=== PATIENT | female | born 1940 | race Caucasian/White ===

== ENCOUNTER 2016-09-21 10:30 | Inpatient (IN) | payer MEDICARE ==
[~2016-09-21] VITALS: Ht 157.5 cm; Wt 47.6 kg
[2016-09-21 10:50] LABS: BILIRUBIN,URINE Negative (NEGATIVE); BLOOD, URINE Trace-lysed Ery/uL (NEGATIVE); COLOR,URINE Light yellow (YELLOW); KETONES,URINE Negative (NEGATIVE); LEUKOCYTE ESTERASE ,URINE Large (NEGATIVE); NITRITE, URINE Negative (NEGATIVE); PH,URINE 5.5 (5.0-8.0); PROTEIN,URINE Negative (NEGATIVE); UGLUCOSE Negative (NEGATIVE); UROBILINOGEN,URINE 0.2 EU/dL (0.2)
[2016-09-21 10:51] LABS: APPEARANCE,URINE Hazy (CLEAR)
[2016-09-21 10:57] LABS: BACTERIA,URINE Few /HPF (None Seen); RBC,URINE 0-3 /HPF (0-2); SQUAMOUS EPITHELIAL CELL,UR Few /HPF (None Seen); WBC,URINE 50-80 /HPF (0-3)
[2016-09-21] MEDS ORDERED: CEPHALEXIN MONOHYDRATE 500 MG CAPSULE PO ONE ×2 (11:30→13:49)
[2016-09-21 11:45] VITALS: BP 135/89
[2016-09-21] MEDS ORDERED: TEMAZEPAM 7.5 MG CAPSULE PO PRN (12:00)
[2016-09-21] MEDS ORDERED: LORAZEPAM 0.5 MG TABLET PO PRN (12:00)
[2016-09-21] MEDS ORDERED: ACETAMINOPHEN 325 MG TABLET PO PRN (12:00)
[2016-09-21] MEDS ORDERED: MAGNESIUM HYDROXIDE 30 ML UDC PO PRN (12:00)
[2016-09-21] MEDS ORDERED: MAG HYDROX/AL HYDROX/SIMETH 30 ML UDC PO PRN (12:00)
[2016-09-21 16:00] VITALS: BP 135/89
[2016-09-21 20:00] VITALS: BP 116/67
[2016-09-21] MEDS: DIVALPROEX SODIUM 125 MG CAP.SPRINK PO SCH (21:00)
[2016-09-21 21:10] VITALS: BP 116/67
[2016-09-22 08:03] VITALS: BP 158/78
[2016-09-22] MEDS: DIVALPROEX SODIUM 125 MG CAP.SPRINK PO SCH ×2 (09:08→20:39)
[2016-09-22 14:52] LABS: BASOPHILS % (AUTO) 0.2 % (0.0-2.0); EOSINOPHILS % (AUTO) 0.4 % (0.0-6.0); HEMATOCRIT 40 % (33-45); HEMOGLOBIN 13.2 g/dL (11.5-14.8); LYMPHOCYTES # (AUTO) 1.3 /CMM (0.8-4.8); LYMPHOCYTES % (AUTO) 11.9 % (20.0-44.0); MEAN CORPUSCULAR HEMOGLOBIN 31 PG (26.0-33.0); MEAN CORPUSCULAR HGB CONC 33 g/dl (31.0-36.0); MEAN CORPUSCULAR VOLUME 94 fL (82-100); MONOCYTES # (AUTO) 0.6 /CMM (0.1-1.30); NEUTROPHILS % (AUTO) 82.5 % (43.0-81.0); PLATELET COUNT (AUTO) 370 /CMM (150-450); RED BLOOD CELL COUNT(AUTO) 4.27 MIL/uL (4.0-5.2); WHITE BLOOD COUNT (AUTO) 10.9 K/uL (4.3-11.0)
[2016-09-22 15:10] LABS: CHOLESTEROL 231 mg/dL (<200); HDL CHOLESTEROL 94 mg/dL (40-60); LDL 102 mg/dL (0-99); TRIGLYCERIDES 62 mg/dL (30-150)
[2016-09-22 15:24] LABS: ALANINE AMINOTRANSFERASE 40 U/L (12-78); ALBUMIN 3.8 g/dL (3.4-5.0); ALKALINE PHOSPHATASE 61 U/L (46-116); ASPARTATE AMINOTRANSFERASE 39 U/L (15-37); BILIRUBIN,TOTAL 0.4 mg/dL (0.2-1.0); CALCIUM, SERUM 9.2 mg/dL (8.5-10.1); CARBON DIOXIDE 31 mmol/L (21-32); CHLORIDE 102 mmol/L (98-107); CREATININE 0.6 mg/dL (0.6-1.3); GLUCOSE 112 mg/dL (74-106); PHOSPHORUS 3.9 mg/dL (2.5-4.9); POTASSIUM 4.8 mmol/L (3.5-5.1); SODIUM SERUM 139 mmol/L (136-145); TOTAL PROTEIN, SERUM 7.6 g/dL (6.4-8.2); UREA NITROGEN, BLOOD 12 mg/dL (7-18)
[2016-09-22 16:09] VITALS: BP 160/68
[2016-09-22] MEDS: AMLODIPINE BESYLATE 10 MG TABLET PO SCH (17:37)
[2016-09-22 20:10] VITALS: BP 150/76
[2016-09-23 08:00] VITALS: BP 141/70
[2016-09-23] MEDS: DIVALPROEX SODIUM 125 MG CAP.SPRINK PO SCH ×2 (08:16→21:08)
[2016-09-23] MEDS: AMLODIPINE BESYLATE 10 MG TABLET PO SCH (08:16)
[2016-09-23 16:00] VITALS: BP 151/56
[2016-09-23 20:00] VITALS: BP 151/59
[2016-09-24] MEDS: DIVALPROEX SODIUM 125 MG CAP.SPRINK PO SCH ×2 (08:27→21:32)
[2016-09-24] MEDS: CYANOCOBALAMIN 1,000 MCG/ML VIAL IM SCH (08:27)
[2016-09-24] MEDS: AMLODIPINE BESYLATE 10 MG TABLET PO SCH (08:27)
[2016-09-24 17:22] VITALS: BP 120/60
[2016-09-24 20:00] VITALS: BP 151/70
[2016-09-24] MEDS: CEPHALEXIN MONOHYDRATE 500 MG CAPSULE PO SCH (21:32)
[2016-09-25 08:00] VITALS: BP 131/69
[2016-09-25] MEDS: DIVALPROEX SODIUM 125 MG CAP.SPRINK PO SCH ×2 (08:30→21:21)
[2016-09-25] MEDS: CEPHALEXIN MONOHYDRATE 500 MG CAPSULE PO SCH ×2 (08:30→21:21)
[2016-09-25] MEDS: AMLODIPINE BESYLATE 10 MG TABLET PO SCH (08:30)
[2016-09-25] MEDS: CYANOCOBALAMIN 1,000 MCG/ML VIAL IM SCH (08:30)
[2016-09-25 16:20] VITALS: BP 128/71
[2016-09-25 20:00] VITALS: BP 159/71
[2016-09-26] MEDS: CEPHALEXIN MONOHYDRATE 500 MG CAPSULE PO SCH ×2 (08:43→21:38)
[2016-09-26] MEDS: DIVALPROEX SODIUM 125 MG CAP.SPRINK PO SCH ×2 (08:43→21:39)
[2016-09-26] MEDS: CYANOCOBALAMIN 1,000 MCG/ML VIAL IM SCH (08:44)
[2016-09-26] MEDS: AMLODIPINE BESYLATE 10 MG TABLET PO SCH (08:44)
[2016-09-26 09:05] VITALS: BP 120/68
[2016-09-26 16:11] VITALS: BP 130/69
[2016-09-26 21:09] VITALS: BP 109/89
[2016-09-27 08:00] VITALS: BP 148/70
[2016-09-27] MEDS: AMLODIPINE BESYLATE 10 MG TABLET PO SCH (08:07)
[2016-09-27] MEDS: CEPHALEXIN MONOHYDRATE 500 MG CAPSULE PO SCH ×2 (08:07→21:55)
[2016-09-27] MEDS: DIVALPROEX SODIUM 125 MG CAP.SPRINK PO SCH ×2 (08:07→21:57)
[2016-09-27] MEDS: CYANOCOBALAMIN 1,000 MCG/ML VIAL IM SCH (08:07)
[2016-09-27 16:00] VITALS: BP 143/70
[2016-09-27 20:19] VITALS: BP 153/70
[2016-09-28 08:00] VITALS: BP 155/66
[2016-09-28] MEDS: DIVALPROEX SODIUM 125 MG CAP.SPRINK PO SCH ×2 (08:00→20:47)
[2016-09-28] MEDS: AMLODIPINE BESYLATE 10 MG TABLET PO SCH (08:01)
[2016-09-28] MEDS: CEPHALEXIN MONOHYDRATE 500 MG CAPSULE PO SCH ×2 (08:01→20:46)
[2016-09-28] MEDS: CYANOCOBALAMIN 1,000 MCG/ML VIAL IM SCH (08:02)
[2016-09-28 16:00] VITALS: BP 140/65
[2016-09-28 19:46] VITALS: BP 123/55
[2016-09-29 08:00] VITALS: BP 128/65
[2016-09-29] MEDS: CEPHALEXIN MONOHYDRATE 500 MG CAPSULE PO SCH ×2 (09:24→21:11)
[2016-09-29] MEDS: CYANOCOBALAMIN 1,000 MCG/ML VIAL IM SCH (09:25)
[2016-09-29] MEDS: AMLODIPINE BESYLATE 10 MG TABLET PO SCH (09:25)
[2016-09-29] MEDS: DIVALPROEX SODIUM 125 MG CAP.SPRINK PO SCH ×2 (09:25→21:11)
[2016-09-29 16:00] VITALS: BP 162/68
[2016-09-29 19:55] VITALS: BP 153/75
[2016-09-29 21:00] VITALS: BP 136/74
[2016-09-30 08:00] VITALS: BP 133/57
[2016-09-30] MEDS: CEPHALEXIN MONOHYDRATE 500 MG CAPSULE PO SCH (08:16)
[2016-09-30] MEDS: DIVALPROEX SODIUM 125 MG CAP.SPRINK PO SCH (08:16)
[2016-09-30 08:17] VITALS: BP 133/57
[2016-09-30] MEDS: CYANOCOBALAMIN 1,000 MCG/ML VIAL IM SCH (08:17)
[2016-09-30] MEDS: AMLODIPINE BESYLATE 10 MG TABLET PO SCH (08:17)
== END 2016-09-30 11:45 | DRG 885 ==
LOC: ER 10:32 → EDBD 10:32 → GPS 11:15
PROVIDERS: ADMIT Psychiatry & Neurology Psychiatry; ATTEND Internal Medicine
DX: F39 Unspecified mood [affective] disorder (principal); G92 Toxic encephalopathy; F32.2 Major depressive disorder, single episode, severe without psychotic features; F03.91 Unspecified dementia, unspecified severity, with behavioral disturbance; N39.0 Urinary tract infection, site not specified; F29 Unspecified psychosis not due to a substance or known physiological condition; F42.3 Hoarding disorder; I10 Essential (primary) hypertension; Z73.6 Limitation of activities due to disability; B96.89 Other specified bacterial agents as the cause of diseases classified elsewhere
CPT/HCPCS: 36415; 70450-TC; 80053-TC; 80061-TC; 81000-TC; 83735-TC; 84100-TC; 84443-TC; 85025-TC; 87081-TC; A4606; J3420; Z7610

== ENCOUNTER 2018-03-29 19:54 | Emergency (ER) | payer MEDICARE, MEDICAID ==
[~2018-03-29] VITALS: Ht 157.5 cm; Wt 49.9 kg
--- NOTE | 2018-03-29 20:15 | NUR ---
Pt biba due to congestion, cough, runny nose and sore throat which started 2 weeks ago. Wheezing on lung simmons noted on auscultation. Pt is A, O/4, walks by herself with steady gait, in no respiratory distress. Awaiting MD for evaluation.
--- NOTE | 2018-03-29 20:25 | NUR ---
Seen by Dr. Madison at [facility]. Refused lab draw, stated "no needles please." aware. Swab done for Rapid Influenze A & B, sent to lab.
--- NOTE | 2018-03-29 20:29 | NUR ---
CXR in progress at [facility]
--- NOTE | 2018-03-29 20:41 | NUR ---
Pt ambulated to the BR with steady gait
[2018-03-29] MEDS ORDERED: predniSONE 20 MG TABLET ONE (20:51)
[2018-03-29] MEDS ORDERED: ALBUTEROL FS 2.5 MG/3 ML VIAL.NEB ONE (20:57)
[2018-03-29] MEDS ORDERED: predniSONE 20 MG TABLET PO ONE (21:00)
[2018-03-29] MEDS ORDERED: ALBUTEROL FS 2.5 MG/3 ML VIAL.NEB NEB ONE (21:00)
--- NOTE | 2018-03-29 21:25 | NUR ---
Pt walked to the BR independently.
--- NOTE | 2018-03-29 22:00 | NUR ---
Called [facility] and spoke to Jason, staff, to notify regarding patient's return to the facility.
--- NOTE | 2018-03-29 22:04 | NUR ---
Called [facility] and spoke to Freddie to arrange a BLS transport back to [facility] Was given an ETA of [id number] Trip#: [id number]
--- NOTE | 2018-03-29 23:10 | NUR ---
Report given to [facility] staff, pt refused to go back to the facility. Pt is pacing back and forth, yelling and screaming.
[2018-03-29] MEDS ORDERED: LORAZEPAM INJ 2 MG/ML VIAL ONE ×2 (23:14→23:15)
[2018-03-29] MEDS ORDERED: LORAZEPAM INJ 2 MG/ML VIAL IM ONE (23:30)
[2018-03-29 23:55] VITALS: BP 137/84
--- NOTE | 2018-03-29 23:55 | NUR ---
Patient discharged back to [facility] via [facility] in stable condition. Written and verbal after care instructions and prescription given. [facility] staff and patient verbalized understanding of instruction.
== END 2018-03-29 23:55 | disposition home or self-care (01) ==
LOC: ER 20:01
DX: J22 Unspecified acute lower respiratory infection (principal); I10 Essential (primary) hypertension
CPT/HCPCS: 71045-TC; 87400; A4606; J2060; Z7610

== ENCOUNTER 2018-04-07 11:18 | Inpatient (IN) | payer MEDICARE, MEDICAID ==
[~2018-04-07] VITALS: Ht 157.5 cm; Wt 58.1 kg
[2018-04-07] MEDS ORDERED: AMLO10TA7 PO (11:32)
[2018-04-07] MEDS ORDERED: CHOL100044 PO (11:32)
[2018-04-07] MEDS ORDERED: ALBU18HF2 IH (11:32)
[2018-04-07] MEDS ORDERED: DIVA125C2 PO (11:32)
[2018-04-07] MEDS ORDERED: MEMA10TA PO (11:32)
[2018-04-07] MEDS ORDERED: ACET-868 PO (11:32)
[2018-04-07] MEDS ORDERED: DONE10TA44 PO (11:32)
--- NOTE | 2018-04-07 11:39 | NUR ---
DR LUCAS AT BEDSIDE FOR EVAL.
--- NOTE | 2018-04-07 11:43 | NUR ---
LANETTE COVARRUBIAS GRAND DAUGHTER [phone]
--- NOTE | 2018-04-07 11:44 | NUR ---
PILOT AT BEDSIDE FOR BLOOD DRAW.
[2018-04-07 11:53] LABS: APPEARANCE,URINE Clear (CLEAR); BACTERIA,URINE Few /HPF (None Seen); BILIRUBIN,URINE Negative (NEGATIVE); BLOOD, URINE Negative Ery/uL (NEGATIVE); COLOR,URINE Yellow (YELLOW); KETONES,URINE 15 (NEGATIVE); LEUKOCYTE ESTERASE ,URINE Trace (NEGATIVE); NITRITE, URINE Negative (NEGATIVE); PROTEIN,URINE Negative (NEGATIVE); RBC,URINE 0-2 /HPF (0-2); SQUAMOUS EPITHELIAL CELL,UR Few /HPF (None Seen); UGLUCOSE Negative (NEGATIVE); UROBILINOGEN,URINE 0.2 EU/dL (0.2); WBC,URINE 0-2 /HPF (0-3)
[2018-04-07 12:04] LABS: BASOPHILS # (AUTO) 0.1 /CMM (0.0-0.2); BASOPHILS % (AUTO) 1.1 % (0.0-2.0); HEMATOCRIT 37 % (33-45); HEMOGLOBIN 12.4 g/dL (11.5-14.8); LYMPHOCYTES # (AUTO) 1.9 /CMM (0.8-4.8); LYMPHOCYTES % (AUTO) 23.4 % (20.0-44.0); MEAN CORPUSCULAR HGB CONC 34 g/dl (31.0-36.0); MEAN CORPUSCULAR VOLUME 94 fL (82-100); MONOCYTES # (AUTO) 0.7 /CMM (0.1-1.30); NEUTROPHILS # (AUTO) 5.5 /CMM (1.8-8.9); NEUTROPHILS % (AUTO) 65.5 % (43.0-81.0); PLATELET COUNT (AUTO) 476 /CMM (150-450); RED BLOOD CELL COUNT(AUTO) 3.91 MIL/uL (4.0-5.2); WHITE BLOOD COUNT (AUTO) 8.3 K/uL (4.3-11.0)
--- NOTE | 2018-04-07 12:17 | NUR ---
SHANELLE ERVIN CALLED FOR EVAL
[2018-04-07 12:18] LABS: ACETAMINOPHEN 0 ug/ml (10-30); ALANINE AMINOTRANSFERASE 21 U/L (12-78); ALBUMIN 3.7 g/dL (3.4-5.0); ALCOHOL, BLOOD < 3 mg/dL (0-0); ALKALINE PHOSPHATASE 73 U/L (46-116); ASPARTATE AMINOTRANSFERASE 11 U/L (15-37); BILIRUBIN,DIRECT 0.1 mg/dL (0.0-0.2); BILIRUBIN,TOTAL 0.4 mg/dL (0.2-1.0); CALCIUM, SERUM 8.7 mg/dL (8.5-10.1); CARBON DIOXIDE 28 mmol/L (21-32); CHLORIDE 100 mmol/L (98-107); CREATININE 0.5 mg/dL (0.6-1.3); GLUCOSE 99 mg/dL (74-106); POTASSIUM 4.2 mmol/L (3.5-5.1); SODIUM SERUM 136 mmol/L (136-145); TOTAL PROTEIN, SERUM 7.8 g/dL (6.4-8.2); UREA NITROGEN, BLOOD 10 mg/dL (7-18)
--- NOTE | 2018-04-07 13:31 | NUR ---
ART MACHINE OPERATOR HOP WORKER AT BEDSIDE FOR PSYCH EVAL.
--- NOTE | 2018-04-07 14:02 | NUR ---
Mani weir in [facility] - 04/07/18 at 1409 by HARRIET REPORT GIVEN TO CHETAN SALGADO PT AWAITING TRANSFER TO [facility].
--- NOTE | 2018-04-07 14:10 | NUR ---
REPORT GIVEN TO CHETAN SARGENT. PT TRANSFERED TO FLOOR IN STABLE CONDITION.
[2018-04-07 14:15] VITALS: BP 145/74
--- NOTE | 2018-04-07 14:30 | NUR ---
GPS/RN RECEDED PT ON 515 FO GD FROM [facility] VIA [facility] ER. ADMITTING ORDERS FROM DR JIMENEZ RECEIVED AND CARRIED OUT. DR RUBALCAVA MADE AWARE OF ADMISSION. NO SI OR HI AT THE TIME OF ADMISSION. PT CHECKED FOR CONTRABAND. COPY OF POLST FOR DNR SIGNED BY DR BRIGITTE RUSSO PLACED IN THE CHART. PT REFUSED TO SIGN THE ADMITTING PAPERWORK/CONSENTS
[2018-04-07] MEDS ORDERED: TEMAZEPAM 7.5 MG CAPSULE PO PRN (15:00)
[2018-04-07] MEDS ORDERED: MAGNESIUM HYDROXIDE 30 ML UDC PO PRN (15:00)
[2018-04-07] MEDS ORDERED: ACETAMINOPHEN 325 MG TABLET PO PRN (15:00)
[2018-04-07] MEDS ORDERED: LORAZEPAM 0.5 MG TABLET PO PRN (15:00)
[2018-04-07] MEDS ORDERED: MAG HYDROX/AL HYDROX/SIMETH 30 ML UDC PO PRN (15:00)
[2018-04-07 16:00] VITALS: BP 127/85
[2018-04-07 20:00] VITALS: BP 127/56
[2018-04-07] MEDS ORDERED: DIVALPROEX SODIUM 125 MG CAP.SPRINK PO SCH (21:00)
[2018-04-07] MEDS: DIVALPROEX SODIUM 125 MG CAP.SPRINK PO SCH (21:22)
[2018-04-07] MEDS: DONEPEZIL 5 MG TABLET PO SCH (21:23)
[2018-04-07] MEDS: QUETIAPINE FUMARATE 25 MG TABLET PO SCH (21:23)
[2018-04-08 08:31] VITALS: BP 141/55
[2018-04-08] MEDS: DIVALPROEX SODIUM 125 MG CAP.SPRINK PO SCH ×2 (09:10→20:47)
[2018-04-08] MEDS: MEMANTINE HCL 5 MG TABLET PO SCH ×2 (09:10→16:23)
[2018-04-08] MEDS: QUETIAPINE FUMARATE 25 MG TABLET PO SCH ×2 (09:10→20:48)
[2018-04-08] MEDS: CHOLECALCIFEROL 1,000 UNIT TABLET (VIT D3) PO SCH (09:10)
[2018-04-08] MEDS: AMLODIPINE BESYLATE 10 MG TABLET PO SCH (09:12)
[2018-04-08 09:26] LABS: CHOLESTEROL 192 mg/dL (<200); HDL CHOLESTEROL 82 mg/dL (40-60); LDL 94 mg/dL (0-99); TRIGLYCERIDES 56 mg/dL (30-150)
[2018-04-08 16:00] VITALS: BP 137/60
[2018-04-08 20:00] VITALS: BP 120/57
[2018-04-08] MEDS: DONEPEZIL 5 MG TABLET PO SCH (21:18)
[2018-04-09 08:00] VITALS: BP 115/54
[2018-04-09] MEDS: QUETIAPINE FUMARATE 25 MG TABLET PO SCH ×2 (09:39→21:17)
[2018-04-09] MEDS: DIVALPROEX SODIUM 125 MG CAP.SPRINK PO SCH ×2 (09:40→21:16)
[2018-04-09] MEDS: MEMANTINE HCL 5 MG TABLET PO SCH ×2 (09:40→16:46)
[2018-04-09] MEDS: CHOLECALCIFEROL 1,000 UNIT TABLET (VIT D3) PO SCH (09:40)
[2018-04-09] MEDS: AMLODIPINE BESYLATE 10 MG TABLET PO SCH (09:40)
[2018-04-09 16:00] VITALS: BP 157/66
[2018-04-09 20:25] VITALS: BP 139/66
[2018-04-09] MEDS: DONEPEZIL 5 MG TABLET PO SCH (21:17)
[2018-04-10 08:00] VITALS: BP 150/62
[2018-04-10] MEDS: CHOLECALCIFEROL 1,000 UNIT TABLET (VIT D3) PO SCH (08:56)
[2018-04-10] MEDS: QUETIAPINE FUMARATE 25 MG TABLET PO SCH ×2 (08:56→21:18)
[2018-04-10] MEDS: DIVALPROEX SODIUM 125 MG CAP.SPRINK PO SCH ×2 (08:56→21:18)
[2018-04-10] MEDS: MEMANTINE HCL 5 MG TABLET PO SCH ×2 (08:56→16:51)
[2018-04-10] MEDS: AMLODIPINE BESYLATE 10 MG TABLET PO SCH (08:56)
--- NOTE | 2018-04-10 12:18 | NUR ---
SW attempted to contact pts emergency contact Stacey [phone], SW unable to speak or leave a voicemail due to phone number not accepting calls.
--- NOTE | 2018-04-10 12:20 | NUR ---
SW contacted Mary Arvizu, Data Warehouse Administrator at [facility] Address: [address], [place] [address] who confirmed pt is on a 7 day bed hold and can return within 7 days.
--- NOTE | 2018-04-10 12:36 | NUR ---
INITIAL DISCHARGE PLAN: Patient will be discharged to [facility] Address: [address] [place] [address] . CRISTA contacted Mary Arvizu General Farm Hand at [facility] Address: [address] [place] [address] who confirmed pt is on a 7 day bed hold and can return within 7 days. CRISTA will help form a safe and proper discharge in collaboration with SNF and MD.
[2018-04-10 16:00] VITALS: BP 130/61
[2018-04-10 20:34] VITALS: BP 148/60
[2018-04-10] MEDS: DONEPEZIL 5 MG TABLET PO SCH (21:19)
[2018-04-11 08:00] VITALS: BP 138/71
[2018-04-11] MEDS: DIVALPROEX SODIUM 125 MG CAP.SPRINK PO SCH ×2 (08:23→21:16)
[2018-04-11] MEDS: MEMANTINE HCL 5 MG TABLET PO SCH ×2 (08:24→17:00)
[2018-04-11] MEDS: QUETIAPINE FUMARATE 25 MG TABLET PO SCH ×2 (08:24→21:16)
[2018-04-11] MEDS: AMLODIPINE BESYLATE 10 MG TABLET PO SCH (08:24)
[2018-04-11] MEDS: CHOLECALCIFEROL 1,000 UNIT TABLET (VIT D3) PO SCH (08:24)
[2018-04-11 16:00] VITALS: BP 136/80
[2018-04-11 20:00] VITALS: BP 131/71
[2018-04-11] MEDS: DONEPEZIL 5 MG TABLET PO SCH (21:16)
--- NOTE | 2018-04-12 00:35 | NUR ---
GPS RN NOTES: FOUND THE PATIENT AWAKE, OFFERED HER SLEEPING MEDICATION, BUT PATIENT REFUSED TO TAKE ONE. WILL CONTINUE TO MONITOR.
[2018-04-12 08:00] VITALS: BP 123/64
[2018-04-12] MEDS: DIVALPROEX SODIUM 125 MG CAP.SPRINK PO SCH ×2 (09:10→20:47)
[2018-04-12] MEDS: MEMANTINE HCL 5 MG TABLET PO SCH ×2 (09:11→17:39)
[2018-04-12] MEDS: CHOLECALCIFEROL 1,000 UNIT TABLET (VIT D3) PO SCH (09:11)
[2018-04-12] MEDS: QUETIAPINE FUMARATE 25 MG TABLET PO SCH ×2 (09:11→20:49)
[2018-04-12] MEDS: AMLODIPINE BESYLATE 10 MG TABLET PO SCH (09:12)
[2018-04-12 16:00] VITALS: BP 127/65
--- NOTE | 2018-04-12 19:30 | NUR ---
Received pt awake and in day room watching TV. no s/s or complaints of pain at this time. Pt is displaying no s/s of acute/apparent distress at this time. Pt's RR is WNL: unlabored with equal rise and fall of the chest. Pt. is A&Ox2 on room air with a SpO2 of 100. Pt. is med compliant, labile mood, and irritable. Pt denies SI/HI at this time. Pt. assisted with turning and repositioning q2hrs and PRN for comfort and circulation. Pt. has no needs at this time. Pt. educated on the use of the call jones. Pt bed side rails up x2 for safety, bed is locked and in low position; will continue to monitor and maintain safety.
[2018-04-12 20:00] VITALS: BP 133/72
[2018-04-12] MEDS: DONEPEZIL 5 MG TABLET PO SCH (21:00)
[2018-04-13 08:00] VITALS: BP 138/61
[2018-04-13] MEDS: QUETIAPINE FUMARATE 25 MG TABLET PO SCH ×2 (09:00→20:57)
[2018-04-13] MEDS: MEMANTINE HCL 5 MG TABLET PO SCH ×2 (09:43→17:12)
[2018-04-13] MEDS: DIVALPROEX SODIUM 125 MG CAP.SPRINK PO SCH ×2 (09:43→20:57)
[2018-04-13] MEDS: CHOLECALCIFEROL 1,000 UNIT TABLET (VIT D3) PO SCH (09:44)
[2018-04-13] MEDS: AMLODIPINE BESYLATE 10 MG TABLET PO SCH (09:45)
[2018-04-13 16:00] VITALS: BP 136/58
[2018-04-13 20:10] VITALS: BP 132/52
[2018-04-13] MEDS: DONEPEZIL 5 MG TABLET PO SCH (20:57)
[2018-04-14 08:00] VITALS: BP 157/65
[2018-04-14] MEDS: MEMANTINE HCL 5 MG TABLET PO SCH (08:22)
[2018-04-14] MEDS: DIVALPROEX SODIUM 125 MG CAP.SPRINK PO SCH (08:22)
[2018-04-14 08:23] VITALS: BP 151/65
[2018-04-14] MEDS: QUETIAPINE FUMARATE 25 MG TABLET PO SCH (08:23)
[2018-04-14] MEDS: CHOLECALCIFEROL 1,000 UNIT TABLET (VIT D3) PO SCH (08:23)
[2018-04-14] MEDS: AMLODIPINE BESYLATE 10 MG TABLET PO SCH (08:23)
--- NOTE | 2018-04-14 09:22 | NUR ---
DR. JIMENEZ GAVE AN ORDER TO D/C HOLD AND D/C TO [facility] 2], TO FOLLOW UP WITH PSYCH AND MEDICAL DOCTORS AND TO CONTINUE SAME MEDS INCLUDING PRN.
--- NOTE | 2018-04-14 14:45 | NUR ---
GPS/RN-NOTES PATIENT WAS DISCHARGE TO [facility] SN[facility] TODAY . DR. JIMENEZ AND DR. PETERSEN MADE AWARE AND AGREES OF PATIENT DISCHARGE WITH ORDERS. REPORT WAS GIVEN TO CARMELA( CHEF GERMAN). PATIENT DID NOT VERBALIZE SI/HI,DENIES VISUAL/AUDITORY HALLUCINATIONS AT THE TIME OF DISCHARGE . PATIENT WAS WILDLIFE BIOLOGY TECHNICIAN BY AMBULANCE VIA GURNEY WITH TWO STAFF ASSIST WITH ALL BELONGINGS . PATIENT LEFT THE UNIT IN STABLE CONDITION AWAKE,ALERT,AMBULATORY WITH STEADY GAIT. NO ACUTE DISTRESS NOTED PER SW PATIENT GRAND GILBERT GAMA WAS AWARE OF THE DISCHARGE.
--- NOTE | 2018-04-14 15:19 | NUR ---
DISCHARGE NOTE: Pt was discharged at 2:45pm via [facility] trip#[phone] to [facility] ([facility] [address] [id number] . Pts granddaughter Stacey [phone] was notified via voicemail. Pts mood appeared euthymic with congruent affect. Pt denied Visual/auditory hallucinations and denied suicidal/homicidal ideations. Pt will be under the medical care of Psychiatrist: Dr. Armenta Address: [address] [place] [address] and Exhibit Carpenter: Dr. Phi Ibarra Address: [address] [address] . The multidisciplinary exitcare form was done, printed, signed, and given to the patient
== END 2018-04-14 14:45 | DRG 885 ==
LOC: ER 11:19 → GPS 13:45
PROVIDERS: ADMIT Psychiatry & Neurology Psychiatry; ATTEND Psychiatry & Neurology Psychiatry
DX: F29 Unspecified psychosis not due to a substance or known physiological condition (principal); F03.91 Unspecified dementia, unspecified severity, with behavioral disturbance; F39 Unspecified mood [affective] disorder; E78.5 Hyperlipidemia, unspecified; J45.20 Mild intermittent asthma, uncomplicated; F41.9 Anxiety disorder, unspecified; I10 Essential (primary) hypertension
CPT/HCPCS: 36415; 80048-TC; 80061-TC; 80076-TC; 80305; 81000-TC; 84443-TC; 85025-TC; 87081-TC; G0480

== ENCOUNTER 2018-04-30 10:00 | Emergency (ER) | payer MEDICARE, MEDICAID ==
[~2018-04-30] VITALS: Ht 157.5 cm; Wt 69.4 kg
[~2018-04-30 10:00] MED LIST: ACET-868 PO; ALBU18HF2 IH; AMLO10TA7 PO; CHOL100044 PO; DIVA125C2 PO; DONE10TA44 PO; MEMA10TA PO
[2018-04-30] MEDS ORDERED: LORA0.5T PO (10:07)
[2018-04-30] MEDS ORDERED: QUET25TA PO (10:07)
[2018-04-30] MEDS ORDERED: TEMA7.5C PO (10:07)
--- NOTE | 2018-04-30 10:11 | NUR ---
PT [id number] FROM [facility] FOR SUDDEN ONSET CHEST PAIN WAS GIVEN ASP 325 AND NITRO X 3 W/ RELIEF. ALERT AND ORIENTED X 2, WITH CONFUSION. ON ROOM AIR, BREATHING EVENLY AND UNLABORED. CONNECTED TO THE MONITOR AND PULS EOX. KEPT COMFORTABLE. WILL CONTINUE TO MONITOR ACCORDINGLY. DR. ORTIZ AT BEDSIDE FOR EVAL.
[2018-04-30 10:15] LABS: BASOPHILS # (AUTO) 0.1 /CMM (0.0-0.2); BASOPHILS % (AUTO) 1.2 % (0.0-2.0); EOSINOPHILS % (AUTO) 5.9 % (0.0-6.0); HEMATOCRIT 36 % (33-45); LYMPHOCYTES # (AUTO) 2.2 /CMM (0.8-4.8); LYMPHOCYTES % (AUTO) 39.1 % (20.0-44.0); MEAN CORPUSCULAR HGB CONC 33 g/dl (31.0-36.0); MEAN CORPUSCULAR VOLUME 94 fL (82-100); MONOCYTES # (AUTO) 0.4 /CMM (0.1-1.30); MONOCYTES % (AUTO) 7.5 % (2.0-12.0); NEUTROPHILS # (AUTO) 2.7 /CMM (1.8-8.9); NEUTROPHILS % (AUTO) 46.3 % (43.0-81.0); PLATELET COUNT (AUTO) 362 /CMM (150-450); RED BLOOD CELL COUNT(AUTO) 3.82 MIL/uL (4.0-5.2); WHITE BLOOD COUNT (AUTO) 5.7 K/uL (4.3-11.0)
[2018-04-30 10:30] LABS: CALCIUM, SERUM 8.8 mg/dL (8.5-10.1); CARBON DIOXIDE 28 mmol/L (21-32); CHLORIDE 103 mmol/L (98-107); CREATININE 0.6 mg/dL (0.6-1.3); GLUCOSE 108 mg/dL (74-106); POTASSIUM 4.3 mmol/L (3.5-5.1); SODIUM SERUM 137 mmol/L (136-145); UREA NITROGEN, BLOOD 8 mg/dL (7-18)
--- NOTE | 2018-04-30 10:30 | NUR ---
DAV OLEARY AT BEDSIDE FOR X-RAY AND PATIENT REFUSED, SPOKE TO MD AND MD AT BEDSIDE TO CONVINCE THE PATINET AND STILL REFUSED. WILL CONTINUE TO MONITOR ACCORDINGLY.
--- NOTE | 2018-04-30 11:23 | NUR ---
BRANDON ETA AT 1140. TRIP# [id number].
--- NOTE | 2018-04-30 12:00 | NUR ---
[facility] SPOKE TO YAMILETH (KITCHEN FOOD ASSEMBLER) AND REPORT GIVEN THAT PT IS GOING BACK TO THEM AND MADE AWARE.
--- NOTE | 2018-04-30 12:05 | NUR ---
BRANDON CAME TO UPHOLSTERY SEWER THE PATIENT AND VITAL SIGNS CHECKED, PER BRANDON BP WAS 211/111, RN ASSIGNED CHECKED MANUAL BP 200/90, MD MADE AWARE, PER MD HE WILL NOT GIVE ANYTHING ABOUT HER BLOOD PRESSURE ELVATED DUE TO PATIENT, REFUSED TO BE ADMITTED AND CHEST X-RAY. CALLED YAMILETH BACK AT [facility] ADN SPOKE TO MD AND WILLING TO ACCEPT THE PATIENT BACK, PATIENT IS ASYMPTOMATIC, NO COMPLAINT OF PAIN, NOR CHEST PAIN. BRANDON DOES NOT WANT TO TAKE THE PATIENT DUE TO BP ELEVATED, VENANCIO CONTINUE TO MONITOR PATIENT VITAL SIGNS.
[2018-04-30 12:52] VITALS: BP 189/75
--- NOTE | 2018-04-30 12:53 | NUR ---
BRANDON CAME BACK TO METAL WIRE TECHNICIAN THE PATIENT GOING BACK TO [facility], IN NO APPARENT DISTRESS NOTED, DENIES ANY PAIN, NOR CHEST PAIN.
== END 2018-04-30 12:53 ==
LOC: ER 10:04
DX: R07.89 Other chest pain (principal); F03.90 Unspecified dementia, unspecified severity, without behavioral disturbance, psychotic disturbance, mood disturbance, and anxiety; I10 Essential (primary) hypertension; R00.1 Bradycardia, unspecified
CPT/HCPCS: 36415; 80048-TC; 84484-TC; 85025-TC; 85730-TC

== ENCOUNTER 2019-12-19 19:18 | Inpatient (IN) | payer MEDICARE, OTHER ==
[~2019-12-19] VITALS: Ht 160 cm; Wt 72.6 kg
[~2019-12-19 19:18] MED LIST changes: +LORA0.5T PO; +QUET25TA PO; +TEMA7.5C PO
--- NOTE | 2019-12-19 20:18 | NUR ---
[id number] snf, for low o2 saturation and chest pain, nitrox3 given min relief noted tachycardia, arrived on non rebreather mask. PT REFUSED TO STATE NAME & DATE, SHE KNOWS SHE'S IN THE HOSPITAL. DENIES CP, SOB, DIZZINESS, N/V, WEAKNESS @ THIS TIME. PT SEEN & EVAL'D BY DR. ROSALES. PLACED ON INFORMATION SYSTEMS SECURITY MANAGER, ST. WILL CONT TO MONITOR.
--- NOTE | 2019-12-19 20:24 | NUR ---
PT awake and alert, pt refused ordered ABG, Dr Parmar and Rn aware. Addendum: 12/19/19 at 2024 by RONA PICHARDO RT Amended: Links added.
[2019-12-19 20:25] LABS: BASOPHILS # (AUTO) 0.1 /CMM (0.0-0.2); EOSINOPHILS % (AUTO) 0.8 % (0.0-6.0); HEMATOCRIT 38 % (33-45); HEMOGLOBIN 11.9 g/dL (11.5-14.8); LYMPHOCYTES # (AUTO) 1.3 /CMM (0.8-4.8); LYMPHOCYTES % (AUTO) 13.6 % (20.0-44.0); MEAN CORPUSCULAR HGB CONC 32 g/dl (31.0-36.0); MEAN CORPUSCULAR VOLUME 93 fL (82-100); MONOCYTES # (AUTO) 0.4 /CMM (0.1-1.30); MONOCYTES % (AUTO) 4.1 % (2.0-12.0); NEUTROPHILS # (AUTO) 7.9 /CMM (1.8-8.9); NEUTROPHILS % (AUTO) 80.5 % (43.0-81.0); PLATELET COUNT (AUTO) 395 /CMM (150-450); RED BLOOD CELL COUNT(AUTO) 4.04 MIL/uL (4.0-5.2); WHITE BLOOD COUNT (AUTO) 9.8 K/uL (4.3-11.0)
[2019-12-19 20:54] LABS: CALCIUM, SERUM 8.7 mg/dL (8.5-10.1); CREATININE 0.7 mg/dL (0.6-1.3); POTASSIUM 4.7 mmol/L (3.5-5.1)
[2019-12-19 21:10] LABS: APPEARANCE,URINE Clear (CLEAR); BILIRUBIN,URINE Negative (NEGATIVE); BLOOD, URINE Negative Ery/uL (NEGATIVE); COLOR,URINE Yellow (YELLOW); KETONES,URINE Negative (NEGATIVE); LEUKOCYTE ESTERASE ,URINE Trace (NEGATIVE); NITRITE, URINE Negative (NEGATIVE); PH,URINE 5.5 (5.0-8.0); PROTEIN,URINE Negative (NEGATIVE); UGLUCOSE Negative (NEGATIVE); UROBILINOGEN,URINE 0.2 EU/dL (0.2)
[2019-12-19 21:10] LABS: ALBUMIN 3.5 g/dL (3.4-5.0); BILIRUBIN,TOTAL 0.3 mg/dL (0.2-1.0)
[2019-12-19 21:21] LABS: BACTERIA,URINE Few /HPF (None Seen); MUCUS,URINE Few /LPF (None Seen); RBC,URINE 0-2 /HPF (0-2); SQUAMOUS EPITHELIAL CELL,UR Moderate /HPF (None Seen)
[2019-12-19] MEDS ORDERED: FUROSEMIDE 40 MG/4 ML VIAL IV ONE (21:30)
[2019-12-19] MEDS ORDERED: FUROSEMIDE 40 MG/4 ML VIAL ONE (21:36)
--- NOTE | 2019-12-19 21:49 | NUR ---
BED 261
[2019-12-19] MEDS ORDERED: LABETALOL HCL IV 100MG VIAL ONE (21:55)
[2019-12-19] MEDS ORDERED: LABETALOL 20 MG/4 ML VIAL IV ONE (22:00)
--- NOTE | 2019-12-19 22:03 | NUR ---
MEDICATED FOR ELEVATED BP & HR PER ERMD ORDER, PT WILLIAN WELL. WILL CONT TO MONITOR.
--- NOTE | 2019-12-19 22:26 | NUR ---
REPORT GIVEN TO ROSETTA BURNETT FOR JEANMARIE
--- NOTE | 2019-12-19 22:30 | NUR ---
AUTOMOTIVE PARTS COUNTER ASSISTANT NOTES RECEIVED PT FROM ER WITH DX ACUTE RESP FAILURE, CHF EXACERBATION, VIA GURNEY, PT IS ALERT ORIENTED X3 AWAKE ON O2 4L SPO2 98% TOLERATING WELL NO SIGN AND SYMPTOMS OF RESPIRATORY DISTRESS, ABLE TO WALK TO BED WITH ASSISTANCE, V/S CHECKED WNL, HOOKED TO TELE MONITOR WITH CURRENT READING CONTROLLED AFIB 80'S HEAD TO TOE ASSESSMENT DONE, ADMISSION ASSESSMENT DONE PT IS DNR/DNI PER MD, PT REFUSED TO USE THE SCD BOOTS, PT REFUSED ALSO TO REMOVED HER PANTS, PUT ON DROPLET ISOLATION FOR R/O COVID PENDING RESULTS, SAFETY MEASURE INITIATED BED ON LOWEST POSITION AND LOCKED CALL LIGHT WITHIN REACH WILL CONT TO MONITOR THE PT, NURSING WALLOW TEST DONE PT IS ABLE TO SWALLOW AND DRINK
[2019-12-19 22:56] VITALS: BP 115/72
[2019-12-19] MEDS ORDERED: TEMAZEPAM 7.5 MG CAPSULE PO PRN (23:30)
[2019-12-19] MEDS ORDERED: LORAZEPAM 0.5 MG TABLET PO PRN (23:30)
[2019-12-19] MEDS ORDERED: ACETAMINOPHEN 325 MG TABLET PO PRN (23:30)
[2019-12-19] MEDS ORDERED: ALBUTEROL SULFATE INH 18 GM HFA.AER.AD IH PRN (23:30)
[2019-12-19 23:33] LABS: THYROID STIMULATING HORMONE 3.596 uIU/mL (0.358-3.74)
[2019-12-20 00:37] LABS: CREATINE KINASE, TOTAL 58 U/L (26-192); FERRITIN 18 ng/mL (8-388)
[2019-12-20] MEDS ORDERED: CEPHALEXIN MONOHYDRATE 250 MG CAPSULE PO ONE (00:38)
[2019-12-20 00:43] LABS: C-REACTIVE PROTEIN < 0.2 mg/dL (0.0-0.9)
[2019-12-20] MEDS: CEPHALEXIN MONOHYDRATE 500 MG CAPSULE PO SCH ×3 (01:08→18:48)
--- NOTE | 2019-12-20 01:09 | NUR ---
RN NOTES KEFLEX 250MG X 2 CAP GIVEN, 500MG CAP NOT AVAILABLE
[2019-12-20 04:00] VITALS: BP 129/72
[2019-12-20 04:33] LABS: BASOPHILS % (AUTO) 0.4 % (0.0-2.0); EOSINOPHILS % (AUTO) 0.5 % (0.0-6.0); HEMATOCRIT 36 % (33-45); LYMPHOCYTES # (AUTO) 1.8 /CMM (0.8-4.8); LYMPHOCYTES % (AUTO) 18.7 % (20.0-44.0); MEAN CORPUSCULAR HGB CONC 33 g/dl (31.0-36.0); MEAN CORPUSCULAR VOLUME 90 fL (82-100); MONOCYTES # (AUTO) 0.7 /CMM (0.1-1.30); MONOCYTES % (AUTO) 6.8 % (2.0-12.0); NEUTROPHILS # (AUTO) 7.2 /CMM (1.8-8.9); NEUTROPHILS % (AUTO) 73.6 % (43.0-81.0); PLATELET COUNT (AUTO) 376 /CMM (150-450); RED BLOOD CELL COUNT(AUTO) 4.05 MIL/uL (4.0-5.2); WHITE BLOOD COUNT (AUTO) 9.8 K/uL (4.3-11.0)
[2019-12-20 05:01] LABS: ALANINE AMINOTRANSFERASE 17 U/L (12-78); ALBUMIN 3.3 g/dL (3.4-5.0); ALKALINE PHOSPHATASE 58 U/L (46-116); ASPARTATE AMINOTRANSFERASE 17 U/L (15-37); BILIRUBIN,TOTAL 0.2 mg/dL (0.2-1.0); CALCIUM, SERUM 8.7 mg/dL (8.5-10.1); CARBON DIOXIDE 28 mmol/L (21-32); CHLORIDE 102 mmol/L (98-107); CREATININE 0.7 mg/dL (0.6-1.3); GLUCOSE 98 mg/dL (74-106); MAGNESIUM 2.3 mg/dL (1.8-2.4); PHOSPHORUS 4.4 mg/dL (2.5-4.9); POTASSIUM 3.8 mmol/L (3.5-5.1); SODIUM SERUM 139 mmol/L (136-145); TOTAL PROTEIN, SERUM 6.9 g/dL (6.4-8.2); UREA NITROGEN, BLOOD 10 mg/dL (7-18)
[2019-12-20 05:10] LABS: CHOLESTEROL 219 mg/dL (<200); HDL CHOLESTEROL 87 mg/dL (40-60); LDL 111 mg/dL (0-99); THYROID STIMULATING HORMONE 2.075 uIU/mL (0.358-3.74); TRIGLYCERIDES 60 mg/dL (30-150)
--- NOTE | 2019-12-20 06:51 | NUR ---
RN CLOSING NOTES PT ON BED ASLEEP NO SIGN AND SYMPTOMS OF RESPIRATORY DISTRESS, SPO2 98% VIA 4L NC HR IS 85 NO SIGNIFICANT CHANGES ON CONDITION NOTED TELE MONITOR STILL READS CONTROLLED AFIB OCCASIONAL AFLUTTER, ALL NEEDS ATTENDED, STAY ON NPO UNTIL FURTHER NOTICE, SAFETY MEASURE MAINTAINED BED ON LOWEST POSITION AND LOCKED SIDE RAILS UP WILL ENDORSED TO AM SHIFT NURSE
--- NOTE | 2019-12-20 07:05 | NUR ---
RN NOTES RECEIVED PT ON BED, RESTING , ON TELE A.FIB HR IN 80'S, R HAND AND L HAND IV SITES G 20 CLEAN ,DRY AND INTACT, PT IS NPO AT THIS TIME, SR UP x3, CALL LIGHT WITHIN EASY REACH, BED LOCKED AND IN LOWEST POSITION, WILL CONTINUE TO MONITOR,
[2019-12-20 08:00] VITALS: BP 152/78
[2019-12-20] MEDS: FUROSEMIDE 40 MG/4 ML VIAL IV SCH ×2 (08:11→17:08)
[2019-12-20] MEDS: QUETIAPINE FUMARATE 25 MG TABLET PO SCH ×2 (08:16→21:19)
[2019-12-20] MEDS: CHOLECALCIFEROL 1,000 UNIT TABLET (VIT D3) PO SCH (08:17)
[2019-12-20] MEDS: DIVALPROEX SODIUM 125 MG CAP.SPRINK PO SCH ×2 (08:17→21:18)
[2019-12-20] MEDS: AMLODIPINE BESYLATE 10 MG TABLET PO SCH (08:18)
[2019-12-20] MEDS: MEMANTINE HCL 5 MG TABLET PO SCH ×2 (08:18→17:08)
--- NOTE | 2019-12-20 10:00 | NUR ---
RN NOTES PT IS RESTLESS AND AGITATED,CONFUSED, UNABLE TO FOLLOW PLAN OF CARE, PULLING ON HER TELE AND IV SITE, DR BRIGITTE SANTOS, ORDER RECEIVED FOR RJ SOFT WRIST PROTECTIVE DEVICE FOR PT SAFETY, CONTINUE TO MONITOR
[2019-12-20 12:00] VITALS: BP 142/58
--- NOTE | 2019-12-20 12:00 | NUR ---
RN NOTES VSS STABLE, CONTINUE TO MONITOR .
--- NOTE | 2019-12-20 15:00 | NUR ---
RN NOTES PT CLAM AND COOPERATIVE , RJ WRIST RESTRAINS REMOVED.
--- NOTE | 2019-12-20 15:25 | NUR ---
RN NOTES CALL RECEIVED FROM LAB REGARDING NEGATIVE COVID RESULTS, DR BRIGITTE SANTOS , OK TO DOWNGRADE PT TO TELE STATUS PER MD ORDER .
--- NOTE | 2019-12-20 15:55 | NUR ---
RN NOTES PT TRANSFERRED TO ROOM 104,TELE STATUS , VIA ACLS PROTOCOL IN STABLE CONDITION, REPORT GIVEN TO WISAM SARGENT FOR CONTINUITY OF CARE.
[2019-12-20 16:00] VITALS: BP 136/60
--- NOTE | 2019-12-20 16:09 | NUR ---
RN NOTES: RECEIVED PT FROM ICU PT IS ON NC 4L TOLERATING WELL, NO SIGNS OF ANY RESPIRATORY DISTRESS, SOB DIFFICULTY BREATHING. PT IS CONFUSED A/O X 1,2, ON TELE MONITOR. IV SITE PATENT INTACT FLUSHED WELL. SWALLOW EVAL WAS DONE PT IS ON SOFT DIET. ALL SAFETY MEASURES MAINTAINED , CALL LIGHT WIITHIN REACH WILL CONTINUE TO MONITOR.
--- NOTE | 2019-12-20 18:41 | NUR ---
RN CLOSING NOTES: PT IN BED AWAKE ON 4L NC TOLARATING WELL, NO ACUTE CHANGES SINCE RECEIVED THE PT SAFETY MEASURES MAINTAINED, CALL LIGHT WITHIN REACH, WILL ENDORSE TO FLIGHT INFORMATION EXPEDITER NURSE
--- NOTE | 2019-12-20 19:25 | NUR ---
AIRDROP SYSTEMS TECHNICIAN OPENING NOTES PATIENT AWAKE IN BED. A/OX2-3. ABLE TO VERBALIZE NEEDS. NO RESTRAINTS PRESENT AT THIS TIME; PATIENT CURRENTLY CALM AND COOPERATIVE. ON 4L NC; NO C/O OF SOB; BREATHING IS EVEN AND UNLABORED. NO C/O PAIN AT THIS TIME. TELE MONITOR READING AFIB, HEART RATE 97. IV PRESENT ON RIGHT HAND AND LEFT HAND, BOTH SIZE 20, BOTH INTACT & PATENT, HEP LOCKED. SAFETY MEASURES IN PLACE AND PATIENT'S NEEDS MET. BED LOCKED, ALARM ON, SIDE RAILS X3, HOB ELEVATED, CALL LIGHT WITHIN REACH. WILL CONTINUE TO MONITOR.
[2019-12-20 20:00] VITALS: BP 106/62
[2019-12-20] MEDS: DONEPEZIL 5 MG TABLET PO SCH (21:18)
--- NOTE | 2019-12-20 22:56 | NUR ---
PSYCHOLOGIST COUNSELING NOTES NOTIFIED HEALTH SERVICES COORDINATOR TRISTEN DUBOIS, OF PATIENT'S BLOOD CULTURE RESULTS OF GRAM POSITIVE RODS. NO NEW ORDERS. WILL CONTINUE TO MONITOR.
[2019-12-21 01:35] VITALS: BP 121/70
[2019-12-21 04:00] VITALS: BP 134/62
--- NOTE | 2019-12-21 06:04 | NUR ---
CARGOMAN NOTES PATIENT REFUSED AM LABS AT THIS TIME. PATIENT REQUESTED TO COME BACK LATER AFTER WAKING UP.
--- NOTE | 2019-12-21 06:44 | NUR ---
MANAGER PROJECT CLOSING NOTES PATIENT AWAKE WATCHING TV. A/OX2-3. NO ADVERSE EVENTS DURING SHIFT. ON RA; NO C/O OF SOB; BREATHING IS EVEN AND UNLABORED. NO C/O PAIN AT THIS TIME. TELE MONITOR READING AFIB, HEART RATE 92. IV PRESENT ON RIGHT HAND AND LEFT HAND, BOTH SIZE 20, BOTH INTACT & PATENT, HEP LOCKED. SAFETY MEASURES IN PLACE AND PATIENT'S NEEDS MET. BED LOCKED, ALARM ON, SIDE RAILS X3, HOB ELEVATED, CALL LIGHT WITHIN REACH. WILL ENDORSE TO DAY SHIFT RN PLAN OF CARE.
--- NOTE | 2019-12-21 07:30 | NUR ---
DIRECTOR OF DEMENTIA OPERATIONS OPENING NOTES PATIENT RECEIVED AWAKE WATCHING TV. A/OX2-3. NO ACUTE DISTRESS NOTED DURING THE SHIFT. ON RA; NO C/O OF SOB; BREATHING IS EVEN AND UNLABORED. NO C/O PAIN AT THIS TIME. IV PRESENT ON RIGHT HAND AND LEFT HAND, BOTH SIZE 20, BOTH INTACT & PATENT, HEP LOCKED. SAFETY MEASURES IN PLACE AND PATIENT'S NEEDS MET. BED LOCKED, ALARM ON, SIDE RAILS X3, HOB ELEVATED, CALL LIGHT WITHIN REACH. WILL CONTINUE TO MONITOR FOR REST OF THE SHIFT.
[2019-12-21 08:00] VITALS: BP 138/83
[2019-12-21] MEDS: CHOLECALCIFEROL 1,000 UNIT TABLET (VIT D3) PO SCH (08:22)
[2019-12-21] MEDS: MEMANTINE HCL 5 MG TABLET PO SCH ×2 (08:23→16:19)
[2019-12-21] MEDS: QUETIAPINE FUMARATE 25 MG TABLET PO SCH ×2 (08:23→21:43)
[2019-12-21] MEDS: CEPHALEXIN MONOHYDRATE 500 MG CAPSULE PO SCH ×2 (08:24→16:19)
[2019-12-21] MEDS: DIVALPROEX SODIUM 125 MG CAP.SPRINK PO SCH ×2 (08:24→21:43)
[2019-12-21] MEDS: AMLODIPINE BESYLATE 10 MG TABLET PO SCH (08:24)
[2019-12-21] MEDS: FUROSEMIDE 40 MG/4 ML VIAL IV SCH ×2 (08:24→16:19)
[2019-12-21 12:00] VITALS: BP_SYST 138; BP_SYST 141; BP_DIAS 83; BP_DIAS 99
[2019-12-21] MEDS ORDERED: VANCOMYCIN 1.25 GM in IV D5W 250 ML IV ONE (12:00)
--- NOTE | 2019-12-21 12:22 | NUR ---
EXCELSIOR MACHINE OPERATOR NOTES PT DECLINED VANCOMYCIN IV AT 12 NOON. OFFERED X3 BUT STILL DECLINED. PT APPEARED AGITATED WHEN APPROACHED REGARDING MEDICATION ADMINISTRATION. Addendum: 12/21/19 at 1654 by NICOLE JACOBS RN MADE AWARE OF REFUSAL WITH NO NEW ORDER AT THIS TIME.
--- NOTE | 2019-12-21 12:32 | NUR ---
ordered for psy eval faxed to [facility] for follow check propagation manager DR Gamble will eval and follow up check
[2019-12-21 16:00] VITALS: BP 133/85
--- NOTE | 2019-12-21 18:59 | NUR ---
DISEASE MANAGEMENT NURSE CLOSING NOTES PT AWAKE WITH NO SIGN AND SYMPTOMS OF RESPIRATORY DISTRESS, SPO2 98% VIA 4L NC HR IS 85 NO SIGNIFICANT CHANGES ON CONDITION NOTED. ALL NEEDS ATTENDED, SAFETY MEASURE MAINTAINED BED ON LOWEST POSITION AND LOCKED SIDE RAILS UP. WITH EPISODES OF REFUSAL IN MEDICATION AND TREATMENT. WILL ENDORSE TO NEXT SHIFT.
--- NOTE | 2019-12-21 19:45 | NUR ---
RN OPENING NOTE PT RECEIVED IN BED WATCHING TV, A/O X2. AMBULATORY,ON RA SATING 97%. NO SOB NOTED. PT HAS 20 G IV ON RIGHT AND LEFT HAND. RIGHT IV PATENT AND FLUSHES WELL, LEFT IV IS NOT PATENT. SAFETY MEASURES IN PLACE. BED AT LOWEST POSITION,LOCKED, CALL LIGHT IN REACH.
[2019-12-21 20:00] VITALS: BP 133/78
[2019-12-21] MEDS: DONEPEZIL 5 MG TABLET PO SCH (21:44)
--- NOTE | 2019-12-22 00:21 | NUR ---
RN NOTE PT REMOVED HER IVs AND REFUSES IV ACCESS. DENG RAMON MADE AWARE. MIDLINE INSERTION ORDERED.
[2019-12-22 04:00] VITALS: BP 150/54
--- NOTE | 2019-12-22 05:30 | NUR ---
RN NOTE PT REFUSED BLOOD DRAWN. THOUGHT ABOUT RISKS AND BENEFITS.
--- NOTE | 2019-12-22 07:26 | NUR ---
RN CLOSING NOTE PT REMAINED STABLE DURING MY SHIFT. REPORT GIVEN TO INCOMING SHIFT FOR JEANMARIE.
[2019-12-22 08:00] VITALS: BP 142/82
[2019-12-22] MEDS: FUROSEMIDE 40 MG/4 ML VIAL IV SCH (08:34)
[2019-12-22] MEDS: MEMANTINE HCL 5 MG TABLET PO SCH (08:36)
[2019-12-22] MEDS: QUETIAPINE FUMARATE 25 MG TABLET PO SCH (08:36)
[2019-12-22] MEDS: AMLODIPINE BESYLATE 10 MG TABLET PO SCH (08:36)
[2019-12-22] MEDS: CHOLECALCIFEROL 1,000 UNIT TABLET (VIT D3) PO SCH (08:36)
[2019-12-22] MEDS: DIVALPROEX SODIUM 125 MG CAP.SPRINK PO SCH (08:36)
[2019-12-22] MEDS: CEPHALEXIN MONOHYDRATE 500 MG CAPSULE PO SCH (08:37)
[2019-12-22] MEDS: VANCOMYCIN 0.75 GM in IV D5W 250 ML IV SCH ×3 (11:21)
[2019-12-22 12:00] VITALS: BP 122/64
[2019-12-22] MEDS ORDERED: CEPH500C2 PO (13:12)
--- NOTE | 2019-12-22 16:52 | NUR ---
rn notes patient dc at this time, no sob noted, VSS in her baseline. no iv lines. report given and facility has no further question. nothing missing and patient has all belonging. patient taken by ambulance
--- NOTE | 2019-12-23 07:36 | NUR ---
RCVD CALL FROM LAB REGARDING BLOOD CULTURE RESULT. ENDORSED TO [facility] NURSE -[facility]. RESULT FAXED
== END 2019-12-22 16:50 | DRG 291 ==
LOC: ER 19:24 → ICU 22:02 → TELE1 12-20 15:49 → TELE-TD 12-20 16:03 → TELE1 12-20 16:26 → MEDSG1 12-21 10:36
PROVIDERS: ADMIT Registered Nurse; ATTEND Hospitalist
DX: I13.0 Hypertensive heart and chronic kidney disease with heart failure and stage 1 through stage 4 chronic kidney disease, or unspecified chronic kidney disease (principal); J96.01 Acute respiratory failure with hypoxia; G93.41 Metabolic encephalopathy; I50.31 Acute diastolic (congestive) heart failure; N39.0 Urinary tract infection, site not specified; E87.1 Hypo-osmolality and hyponatremia; I16.0 Hypertensive urgency; E78.5 Hyperlipidemia, unspecified; E66.9 Obesity, unspecified; F03.90 Unspecified dementia, unspecified severity, without behavioral disturbance, psychotic disturbance, mood disturbance, and anxiety; F39 Unspecified mood [affective] disorder; F41.9 Anxiety disorder, unspecified; N18.2 Chronic kidney disease, stage 2 (mild); Z87.891 Personal history of nicotine dependence; J45.909 Unspecified asthma, uncomplicated; Z68.28 Body mass index [BMI] 28.0-28.9, adult; I25.10 Atherosclerotic heart disease of native coronary artery without angina pectoris; J44.9 Chronic obstructive pulmonary disease, unspecified; Z66 Do not resuscitate; F09 Unspecified mental disorder due to known physiological condition
CPT/HCPCS: 36415; 71045-TC; 80048-TC; 80053-TC; 80061-TC; 80076-TC; 80164-TC; 81000-TC; 82550-TC; 82728-TC; 83605-TC; 83615-TC; 83735-TC; 83880; 84100-TC; 84439-TC; 84443-TC; 84484-TC; 85025-TC; 85378-TC; 85730-TC; 86140-TC; 87040-TC; 87081-TC; 87086-TC; 92611-TC; 93307-TC; G0378; J1940; J3370; J3490; J7060; U0003-CS

== ENCOUNTER 2020-02-15 16:57 | Emergency (ER) | payer MEDICARE, OTHER ==
[~2020-02-15] VITALS: Ht 160 cm; Wt 80.3 kg
[~2020-02-15 16:57] MED LIST changes: +AMLO-213 PO; -AMLO10TA7 PO; +CEPH500C2 PO
--- NOTE | 2020-02-15 17:11 | NUR ---
A/O X 4,REFUSING EKG AND PIV/LABS,ER PROVIDER INFORMED
[2020-02-15] MEDS ORDERED: MAGN400O6 PO (17:49)
[2020-02-15] MEDS ORDERED: ATOR10TA PO (17:49)
[2020-02-15] MEDS ORDERED: ASPI-1169 PO (17:49)
--- NOTE | 2020-02-15 18:12 | NUR ---
OFFERED TO INSERT IV LINE. PT REFUSED. WILL OFFER AGAIN LATER
--- NOTE | 2020-02-15 18:32 | NUR ---
PT REFUSED BLOOD WORKS. REFUSED CXRAY. PA AWARE
--- NOTE | 2020-02-15 20:54 | NUR ---
[facility] CALLED FOR TRANSPORT. ETA 2 HRS.
--- NOTE | 2020-02-15 21:26 | NUR ---
CALLED [facility] REGARDING PATIENT'S RETURN TO FACILITY TO STAFF.
--- NOTE | 2020-02-15 21:32 | NUR ---
REPORT GIVEN TO TRANSPORT TEAM FOR JEANMARIE. AND TRANSFERRING RESPONSIBILTIES.
[2020-02-15 22:13] VITALS: BP 122/74
== END 2020-02-15 21:32 | disposition home or self-care (01) ==
LOC: ER 17:02
DX: R07.89 Other chest pain (principal); I10 Essential (primary) hypertension; J45.909 Unspecified asthma, uncomplicated; E78.5 Hyperlipidemia, unspecified; E03.9 Hypothyroidism, unspecified; D64.9 Anemia, unspecified; F03.90 Unspecified dementia, unspecified severity, without behavioral disturbance, psychotic disturbance, mood disturbance, and anxiety; I25.10 Atherosclerotic heart disease of native coronary artery without angina pectoris; Z79.899 Other long term (current) drug therapy; Z79.82 Long term (current) use of aspirin